=== PATIENT | male | born 1960 | race Caucasian/White ===

== ENCOUNTER 2017-09-28 17:16 | Emergency (ER) | payer BC, OTHER ==
--- NOTE | 2017-09-28 17:28 | Emergency Department Record ---
History of Present Illness - General Chief Complaint: Chest Pain Stated Complaint: CHEST PAIN Time Seen by Provider: 09/28/17 17:26 Source: Patient Mode of Arrival: Ambulatory Limitations: No limitations - History of Present Illness Initial Comments: The patient is here due to sharp L sided chest discomfort for the last 2 hours. The pain is nonradiating and not associated with nausea, sweating or SOB. The patient has had L sharp scapular pain off and on for the last 2 days that came on after bending over. He was seen this AM at [facility] in the [place] and told it was a muscle strain. Due to the pain moving from the scapula to the anterior chest he decided to come to the ER at [facility]. Presently the patient states the pain has mainly subsided. The patient's only cardiac risk factors are HTN and family hx. MD Complaint: Chest pain Onset/Timin -: Hour(s) Onset: During exertion, Other Pain Location: Left chest Severity scale (1-10): 3 Quality: Other Improves With: Nothing Worsens With: Nothing Treatments Prior to Arrival: Aspirin Treatment Prior to Arrival Comment:: 650 Aspirin - Related Data Home Medications Medication Instructions Recorded Confirmed Last Taken Hydrocodone/Acetaminophen [[place] 1 tab PO ASDIR 09/28/17 09/28/17 09/28/17 7.5-325 Tablet] Lisinopril 10 mg PO DAILY 09/28/17 09/28/17 Unknown Meloxicam [Mobic] 15 mg PO DAILY 09/28/17 09/28/17 Unknown Allergies Allergy/AdvReac Type Severity Reaction Status Date / Time No Known Drug Allergies Allergy Verified 09/28/17 17:26 Travel Screening - Travel/Exposure Within Last 30 Days Have you traveled within the last 30 days?: No - Travel/Exposure Within Last Year Have you traveled outside the [place] in the last year?: No - Additonal Travel Details Have you been exposed to anyone with a communicable illness?: No - Travel Symptoms Symptom Screening: None Review of Systems Constitutional: Denies: Chills, Fever Eyes: Denies: Eye discharge ENT: Denies: Congestion Respiratory: Denies: Cough Cardiovascular: Reports: Chest pain. Denies: Arrhythmia Endocrine: Denies: Fatigue Gastrointestinal: Denies: Abdominal pain Genitourinary: Denies: Dysuria Musculoskeletal: Reports: Back pain. Denies: Arthralgia Past Medical History - SOCIAL HISTORY Smoking Status: Never smoker Alcohol Use: Occasional Drug Use: None - RESPIRATORY Hx Respiratory Disorders: No - CARDIOVASCULAR Hx Cardio Disorders: Yes Hx Hypertension: Yes - NEURO Hx Neuro Disorders: No - GI Hx GI Disorders: Yes Hx Hiatal Hernia: Yes (umbilical hernia) - Hx Genitourinary Disorders: No - ENDOCRINE Hx Endocrine Disorders: No - MUSCULOSKELETAL Hx Musculoskeletal Disorders: Yes - PSYCH Hx Psych Problems: No - HEMATOLOGY/ONCOLOGY Hx Hematology/Oncology Disorders: No Family Medical History Any Significant Family History?: No Hx Diabetes: Father, Mother Hx Heart Disease: Father *Heart Comment: triple byspass dad. Hx Kidney Disease: Brother/Sister Physical Exam - General General Appearance: Alert, Oriented x3, Cooperative, No acute distress - Head Head exam: Atraumatic, Normocephalic, Normal inspection - Eye Eye exam: Normal appearance, PERRL - ENT Throat exam: Normal inspection. negative: Tonsillar erythema, Tonsillar exudate - Neck Neck exam: Normal inspection, Full ROM. negative: Tenderness - Respiratory Respiratory exam: Normal lung sounds bilaterally, Chest wall tenderness ( Palpation of the L upper chest exactly reproduces the pain.). negative: Respiratory distress - Cardiovascular Cardiovascular Exam: Regular rate, Normal rhythm, Normal heart sounds - GI/Abdominal GI/Abdominal exam: Soft. negative: Tenderness - Extremities Extremities exam: Normal inspection, Full ROM, Normal capillary refill. negative: Tenderness - Neurological Neurological exam: Alert. negative: Motor sensory deficit Course Vital Signs 09/28/17 17:18 Temperature 98.4 F Pulse Rate 76 Respiratory 16 Rate Blood Pressure 159/108 Pulse Ox 97 Medical Decision Making - Lab Data Result diagrams: 09/28/17 17:20 09/28/17 17:20 Disposition Forms: Patient Portal Access Quality - Blood Pressure Screening Does Patient Have Any of the Following: No Blood Pressure Classification: Hypertensive Reading Systolic Measurement: 159 Diastolic Measurement: 108
[2017-09-28 17:45] LABS: BASO % 0.4 % (0-6); EOS % 2.9 % (0-6); GRAN % 52.8 % (47-80); HEMATOCRIT 42.9 % (42.0-52.0); HEMOGLOBIN 14.2 gm/dl (14.0-18.0); MEAN CELL VOLUME 88.6 fl (81-97); MEAN CORPUSCULAR HEMOGLOBIN 29.3 pg (27-33); MEAN CORPUSCULAR HGB CONC 33.1 g/dl (32-36); MEAN PLATELET VOLUME 9.8 fl (7.4-10.4); MONO % 9.9 % (0-9); PLATELET COUNT 277 K/uL (130-400); RED BLOOD COUNT 4.84 M/uL (4.40-5.70); RED CELL DISTRIBUTION WIDTH 12.8 % (11.5-14.5); WHITE BLOOD COUNT W/O DIFF 9.6 K/uL (4.2-12.2)
[2017-09-28 17:56] LABS: BLOOD UREA NITROGEN 27 mg/dL (6-20); CREATININE 0.8 mg/dL (0.7-1.2); EST GLOMERULAR FILTRATION RATE > 60 mL/min
[2017-09-28 17:59] LABS: GLUCOSE,RANDOM 97 mg/dL (74-109)
[2017-09-28 18:02] LABS: CREATINE PHOSPHOKINASE 713 U/L (39-308)
[2017-09-28 18:04] LABS: CKMB 15.6 ng/mL (<6.73)
[2017-09-28] MEDS ORDERED: KETOROLAC 30 MG/ML VIAL IVP ONE (18:17)
--- NOTE | 2017-09-28 18:31 | Emergency Department Record ---
History of Present Illness - General Chief Complaint: Chest Pain Stated Complaint: CHEST PAIN Time Seen by Provider: 09/28/17 17:26 Source: Patient Mode of Arrival: Ambulatory - History of Present Illness Complaint: Chest pain Onset/Timin -: Hour(s) Onset: During exertion, Other Pain Location: Left chest Severity scale (1-10): 3 Quality: Other Improves With: Nothing Worsens With: Nothing Treatments Prior to Arrival: Aspirin Treatment Prior to Arrival Comment:: 650 Aspirin - Related Data Home Medications Medication Instructions Recorded Confirmed Last Taken Hydrocodone/Acetaminophen [[place] 1 tab PO ASDIR 09/28/17 09/28/17 09/28/17 7.5-325 Tablet] Lisinopril 10 mg PO DAILY 09/28/17 09/28/17 Unknown Meloxicam [Mobic] 15 mg PO DAILY 09/28/17 09/28/17 Unknown Allergies Allergy/AdvReac Type Severity Reaction Status Date / Time No Known Drug Allergies Allergy Verified 09/28/17 17:26 Travel Screening - Travel/Exposure Within Last 30 Days Have you traveled within the last 30 days?: No - Travel/Exposure Within Last Year Have you traveled outside the [place] in the last year?: No - Additonal Travel Details Have you been exposed to anyone with a communicable illness?: No - Travel Symptoms Symptom Screening: None Past Medical History - SOCIAL HISTORY Smoking Status: Never smoker Alcohol Use: Occasional Drug Use: None - RESPIRATORY Hx Respiratory Disorders: No - CARDIOVASCULAR Hx Cardio Disorders: Yes Hx Hypertension: Yes - NEURO Hx Neuro Disorders: No - GI Hx GI Disorders: Yes Hx Hiatal Hernia: Yes (umbilical hernia) - Hx Genitourinary Disorders: No - ENDOCRINE Hx Endocrine Disorders: No - MUSCULOSKELETAL Hx Musculoskeletal Disorders: Yes - PSYCH Hx Psych Problems: No - HEMATOLOGY/ONCOLOGY Hx Hematology/Oncology Disorders: No Family Medical History Any Significant Family History?: No Hx Diabetes: Father, Mother Hx Heart Disease: Father *Heart Comment: triple byspass dad. Hx Kidney Disease: Brother/Sister Course Vital Signs 09/28/17 17:18 Temperature 98.4 F Pulse Rate 76 Respiratory 16 Rate Blood Pressure 159/108 Pulse Ox 97 Medical Decision Making - Lab Data Result diagrams: 09/28/17 17:20 09/28/17 17:20 Lab Results 09/28/17 09/28/17 09/28/17 Range/Units 17:20 17:20 17:20 WBC 9.6 (4.2-12.2) K/uL RBC 4.84 (4.40-5.70) M/uL Hgb 14.2 (14.0-18.0) gm/dl Hct 42.9 (42.0-52.0) % MCV 88.6 (81-97) fl MCH 29.3 (27-33) pg MCHC 33.1 (32-36) g/dl RDW 12.8 (11.5-14.5) % Plt Count 277 (130-400) K/uL MPV 9.8 (7.4-10.4) fl Gran % 52.8 (47-80) % Lymphocytes % 34.0 (16-45) % Monocytes % 9.9 H (0-9) % Eosinophils % 2.9 (0-6) % Basophils % 0.4 (0-6) % D-Dimer 0.32 (0-0.59) mg/L FEU Sodium 145 (136-145) mmol/L Potassium 4.2 (3.4-4.5) mmol/L Chloride 101 (98-107) mmol/L Carbon Dioxide 28.0 (22-29) mmol/L Anion Gap 16.0 (7-16) BUN 27 H (6-20) mg/dL Creatinine 0.8 (0.7-1.2) mg/dL Estimated GFR > 60 mL/min Random Glucose 97 (74-109) mg/dL Calcium 9.6 (8.6-10.0) mg/dL Creatine Kinase 713 H (39-308) U/L CK-MB (CK-2) 15.6 H (<6.73) ng/mL CK-MB (CK-2) Rel Index 2.20 (0-4) % Troponin T < 0.010 (0-0.010) ng/mL 09/28/17 Range/Units 17:20 WBC (4.2-12.2) K/uL RBC (4.40-5.70) M/uL Hgb (14.0-18.0) gm/dl Hct (42.0-52.0) % MCV (81-97) fl MCH (27-33) pg MCHC (32-36) g/dl RDW (11.5-14.5) % Plt Count (130-400) K/uL MPV (7.4-10.4) fl Gran % (47-80) % Lymphocytes % (16-45) % Monocytes % (0-9) % Eosinophils % (0-6) % Basophils % (0-6) % D-Dimer (0-0.59) mg/L FEU Sodium (136-145) mmol/L Potassium (3.4-4.5) mmol/L Chloride (98-107) mmol/L Carbon Dioxide (22-29) mmol/L Anion Gap (7-16) BUN (6-20) mg/dL Creatinine (0.7-1.2) mg/dL Estimated GFR mL/min Random Glucose (74-109) mg/dL Calcium (8.6-10.0) mg/dL Creatine Kinase 713 H (39-308) U/L CK-MB (CK-2) (<6.73) ng/mL CK-MB (CK-2) Rel Index (0-4) % Troponin T (0-0.010) ng/mL Disposition Clinical Impression: Chest pain Disposition: Acute Care Hospital Transfer Condition: (2) Stable Forms: Patient Portal Access Quality - Quality Measures Quality Measures: N/A - Blood Pressure Screening View Details: Yes Does Patient Have Any of the Following: Active Dx of HTN Blood Pressure Classification: Hypertensive Reading Systolic Measurement: 157 Diastolic Measurement: 105 Screening for High Blood Pressure: Patient Exclusion, Hx of HTN [G9744]
--- NOTE | 2017-09-28 18:37 | Emergency Department Record ---
History of Present Illness - General Chief Complaint: Chest Pain Stated Complaint: CHEST PAIN Time Seen by Provider: 09/28/17 17:26 Source: Patient Mode of Arrival: Ambulatory Limitations: No limitations - History of Present Illness Initial Comments: The patient is here due to a 2 day hx of L sided CP. The pain started in the L scapula area yesterday and is intermittent. The onset was with bending over and twisting. There was no SOB, COLLEEN, or sweating with it. The patient also denied any CP with exertion over the last couple of days. Due to the pain worsening this AM he did go to the ER at [facility] and was told the pain was musculoskeletal and was discharged. After discharge the pain then travelled to the L anterior chest. Now the pain is intermittent in the L axilla. He denies any SOB, sweating , or nausea. The patient has cardiac risk factors of HTN, obesity and a strong family hx of CAD. The patient has taken 2 full dose ASA's today. MD Complaint: Chest pain Onset/Timin -: Hour(s) Onset: During exertion, Other Pain Location: Left chest Severity scale (1-10): 3 Quality: Other Improves With: Nothing Worsens With: Nothing Treatments Prior to Arrival: Aspirin Treatment Prior to Arrival Comment:: 650 Aspirin - Related Data Home Medications Medication Instructions Recorded Confirmed Last Taken Hydrocodone/Acetaminophen [[place] 1 tab PO ASDIR 09/28/17 09/28/17 09/28/17 7.5-325 Tablet] Lisinopril 10 mg PO DAILY 09/28/17 09/28/17 Unknown Meloxicam [Mobic] 15 mg PO DAILY 09/28/17 09/28/17 Unknown Allergies Allergy/AdvReac Type Severity Reaction Status Date / Time No Known Drug Allergies Allergy Verified 09/28/17 17:26 Travel Screening - Travel/Exposure Within Last 30 Days Have you traveled within the last 30 days?: No - Travel/Exposure Within Last Year Have you traveled outside the [place] in the last year?: No - Additonal Travel Details Have you been exposed to anyone with a communicable illness?: No - Travel Symptoms Symptom Screening: None Review of Systems Constitutional: Denies: Chills, Fever Eyes: Denies: Eye discharge ENT: Denies: Congestion Respiratory: Denies: Cough, Dyspnea Cardiovascular: Reports: Chest pain Endocrine: Denies: Fatigue Gastrointestinal: Denies: Abdominal pain Genitourinary: Denies: Dysuria Musculoskeletal: Reports: Back pain. Denies: Arthralgia Past Medical History - SOCIAL HISTORY Smoking Status: Never smoker Alcohol Use: Occasional Drug Use: None - RESPIRATORY Hx Respiratory Disorders: No - CARDIOVASCULAR Hx Cardio Disorders: Yes Hx Hypertension: Yes - NEURO Hx Neuro Disorders: No - GI Hx GI Disorders: Yes Hx Hiatal Hernia: Yes (umbilical hernia) - Hx Genitourinary Disorders: No - ENDOCRINE Hx Endocrine Disorders: No - MUSCULOSKELETAL Hx Musculoskeletal Disorders: Yes - PSYCH Hx Psych Problems: No - HEMATOLOGY/ONCOLOGY Hx Hematology/Oncology Disorders: No Family Medical History Any Significant Family History?: No Hx Diabetes: Father, Mother Hx Heart Disease: Father *Heart Comment: triple byspass dad. Hx Kidney Disease: Brother/Sister Physical Exam - General General Appearance: Alert, Oriented x3, Cooperative, No acute distress - Head Head exam: Atraumatic, Normocephalic, Normal inspection - Eye Eye exam: Normal appearance, PERRL - ENT Throat exam: Normal inspection. negative: Tonsillar erythema, Tonsillar exudate - Neck Neck exam: Normal inspection, Full ROM. negative: Tenderness - Respiratory Respiratory exam: Normal lung sounds bilaterally, Chest wall tenderness (The L anterior superior chest wall pain is reproducible to palpation.). negative: Respiratory distress - Cardiovascular Cardiovascular Exam: Regular rate, Normal rhythm, Normal heart sounds. negative : Diastolic murmur, Systolic murmur - GI/Abdominal GI/Abdominal exam: Soft (morbidly obese.), Normal bowel sounds, Rigid. negative : Rebound, Tenderness - Extremities Extremities exam: Normal inspection, Full ROM, Normal capillary refill. negative: Tenderness - Neurological Neurological exam: Alert, Normal gait. negative: Abnormal gait, Motor sensory deficit Course Vital Signs 09/28/17 17:18 Temperature 98.4 F Pulse Rate 76 Respiratory 16 Rate Blood Pressure 159/108 Pulse Ox 97 - Reevaluation(s) Reevaluation #1: The patient is doing well and presently denies any new pain or SOB. Due to the nature of his complaints and cardiac risk factors I did recommend transfer to a larger hospital and he chose [facility]. I then did discuss the case with Dr. Karlene Howard and he does accept the patient for hospital transfer and admission. 09/28/17 18:36 Medical Decision Making - Data Complexity MDM Data: Labs Ordered and/or Reviewed, EKG Ordered and/or Reviewed - Lab Data Result diagrams: 09/28/17 17:20 09/28/17 17:20 Lab Results 09/28/17 09/28/17 09/28/17 Range/Units 17:20 17:20 17:20 WBC 9.6 (4.2-12.2) K/uL RBC 4.84 (4.40-5.70) M/uL Hgb 14.2 (14.0-18.0) gm/dl Hct 42.9 (42.0-52.0) % MCV 88.6 (81-97) fl MCH 29.3 (27-33) pg MCHC 33.1 (32-36) g/dl RDW 12.8 (11.5-14.5) % Plt Count 277 (130-400) K/uL MPV 9.8 (7.4-10.4) fl Gran % 52.8 (47-80) % Lymphocytes % 34.0 (16-45) % Monocytes % 9.9 H (0-9) % Eosinophils % 2.9 (0-6) % Basophils % 0.4 (0-6) % D-Dimer 0.32 (0-0.59) mg/L FEU Sodium 145 (136-145) mmol/L Potassium 4.2 (3.4-4.5) mmol/L Chloride 101 (98-107) mmol/L Carbon Dioxide 28.0 (22-29) mmol/L Anion Gap 16.0 (7-16) BUN 27 H (6-20) mg/dL Creatinine 0.8 (0.7-1.2) mg/dL Estimated GFR > 60 mL/min Random Glucose 97 (74-109) mg/dL Calcium 9.6 (8.6-10.0) mg/dL Creatine Kinase 713 H (39-308) U/L CK-MB (CK-2) 15.6 H (<6.73) ng/mL CK-MB (CK-2) Rel Index 2.20 (0-4) % Troponin T < 0.010 (0-0.010) ng/mL 09/28/17 Range/Units 17:20 WBC (4.2-12.2) K/uL RBC (4.40-5.70) M/uL Hgb (14.0-18.0) gm/dl Hct (42.0-52.0) % MCV (81-97) fl MCH (27-33) pg MCHC (32-36) g/dl RDW (11.5-14.5) % Plt Count (130-400) K/uL MPV (7.4-10.4) fl Gran % (47-80) % Lymphocytes % (16-45) % Monocytes % (0-9) % Eosinophils % (0-6) % Basophils % (0-6) % D-Dimer (0-0.59) mg/L FEU Sodium (136-145) mmol/L Potassium (3.4-4.5) mmol/L Chloride (98-107) mmol/L Carbon Dioxide (22-29) mmol/L Anion Gap (7-16) BUN (6-20) mg/dL Creatinine (0.7-1.2) mg/dL Estimated GFR mL/min Random Glucose (74-109) mg/dL Calcium (8.6-10.0) mg/dL Creatine Kinase 713 H (39-308) U/L CK-MB (CK-2) (<6.73) ng/mL CK-MB (CK-2) Rel Index (0-4) % Troponin T (0-0.010) ng/mL - EKG Data -: EKG Interpreted by Mo EKG: Abnormal EKG (Neg for acute ischemia, Q waves III and AVF.) Disposition Disposition: Transfer Clinical Impression: Chest pain Qualifiers: Chest pain type: other chest pain Qualified Code(s): R07.89 - Other chest pain Disposition: Acute Care Hospital Transfer Transfer To: [facility] Reason For Transfer: Cardiology Accepting Physician: Cardiology Time Discussed w/Accepting Physician: 18:38 Condition: (2) Stable Forms: Patient Portal Access Time of Disposition: 18:38 Quality - Quality Measures Quality Measures: N/A - Blood Pressure Screening View Details: Yes Does Patient Have Any of the Following: Active Dx of HTN Blood Pressure Classification: Hypertensive Reading Systolic Measurement: 157 Diastolic Measurement: 105 Screening for High Blood Pressure: Patient Exclusion, Hx of HTN [G9744]
== END 2017-09-28 19:30 | disposition short-term general hospital (02) ==
LOC: ER 17:16
DX: R07.89 Other chest pain (principal); I10 Essential (primary) hypertension
CPT/HCPCS: 80048; 82550; 82553; 84484; 85025; 85379; 93005; 93010; 96374; 99285; J1885